=== PATIENT | male | born 1980 | race Caucasian/White ===

== ENCOUNTER 2019-11-03 22:18 | Emergency (ER) | payer OTHER ==
[~2019-11-03] VITALS: Ht 177.8 cm; Wt 81.7 kg
--- NOTE | ~2019-11-03 | O ---
[facility] [place] [address] OPERATIVE REPORT Name: EASTON GALVEZ [id number] Admission: 11/03/19 Attend Phys: Discharge: 11/04/19 Date of : 78 Report #: [id number] THIS REPORT FOR: //name// CC: BRIELLE physician/PCP Joanna Chowdary This was done from roughly midnight to 1 a.m. between 11/03/2019 and 11/04/2019. ICD-9 DIAGNOSES: 1. Massive dog bite to the face 4 x 3 cm deficit to the cheek. 2. Massive defect of the superior mandibular border 2.5 x 2.2 cm. 3. Complex lacerations of the cheek and the eyelid. PROCEDURE PERFORMED: 1. Irrigation and debridement of the cheek and mandibular border. 2. Closure of 4 x 3 cm deficit with reconstruction flap based upon the superficial temporal vessels. 3. Closure of the lower jaw utilizing a marginal and facial artery flap. 4. Complex closure of the left cheek. 5. Complex closure of the left eyelid. INDICATIONS: This is a gentleman who late on Tuesday night, 11/03/2019, had left side of his face bitten off by a stray dog. There is very little information by the family, tremendous amount of anxiety in the room with multiple family members in and out of the room. Our plan tonight is to sedate him, have the family member step out into the waiting room while I can undertake thorough cleansing and debridement and start approximating these wounds. This is a staged procedure and that he is going to require multiple surgeries for reconstruction. DESCRIPTION OF PROCEDURE: The patient was supine on the operating table. The nursing staff and that the physician in-charge from the Emergency Room assisted in giving IV Versed while I performed injections. Total injections were roughly 40-45 mL of lidocaine and Marcaine with epinephrine. I did nerve blocks at the infraorbital nerve and supraorbital nerve, the inferior alveolar nerve and marginal mandibular as well as along the superficial temporal fascia. This is to help anesthetize the face. He also displayed a lot of agitation and he required sedation throughout the procedure. Following this, I irrigated, I used both chlorhexidine and then followed by Betadine and then to get the chlorhexidine out, but I wanted to get as much as sterile and antiseptic into the massive open wound, so I irrigated with copious amounts of saline following this and now I began the closures of the two largest ones were the 4 x 3 cm on the mid cheek and then one just above the mandibular border within his siegel. I then debrided 4 x 3 cm incision. I freshened up the wound edges, shaped more like a rhomboid and performed a large cut back incision utilizing the superficial temporal vessel to be able to rotate and advance the soft tissue into position and advanced the closure. I used facelift techniques and just did [address] [address] OPERATIVE REPORT Name: LENNYEASTON Room #: DEP ER Patrick#: [id number] Admission: 11/03/19 Attend Phys: Discharge: 11/04/19 Date of : 78 Report #: [id number] this reconstruction right above this mass. I was able to attach some of the reconstruction as it was rotated into position 60 degrees as a Limberg flap. I rotated it and captured these mass for the closure. This was done with 4-0 Monocryl sutures. Multiple layers of 4-0 Monocryl sutures were utilized, followed by 5-0 Prolenes for closure of the skin, complex closures with 4 additional 4-0 Monocryl and 5-0 Prolenes were performed in the complex lacerations of the cheek and then also carried up into the left lateral eyelid. I now had the mandibular border lesion, which was in his siegel. I then proceeded with advancing this defect, was closed by advancing facial artery based flap and it was rotated with a cut back incision and inset with 4-0 Monocryl, followed by 5-0 Prolene in inverting fashion. Adaptic and Bactroban were applied to the site. The reconstruction flaps were stable upon completion of the procedure with well vascularized lesions. This covered the 2.5 x 2 cm deficit. The patient tolerated the procedure well. Sponge and needle count were correct. No drains or packs were placed. Light activity, head elevation, hydrocodone for pain. I have recommended Augmentin to be given to the family and the Emergency Room doctor will prescribe all the medications. Blood loss was roughly 30 mL. During these procedures, the epinephrine helped considerably. Once I got this in, the epinephrine into the wound really helped out in terms of hemostasis. He was stable upon discharge. He had further workup being done by the Emergency Room staff. I will be seeing him on an outpatient basis. By: [id number] Gregg Hogan MD /renita
--- NOTE | ~2019-11-03 | HC ---
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 Apparently, his face was placed in the way of he states a stray dog and the dog has taken a large chunk of tissue out of his face, his cheek. He has greater than 4 x 3 cm deficit of tissue out of his cheek through the skin and subcutaneous tissues down to the SMAS muscle. He also has a 2 cm x 2.5 cm deficit out of the mandibular border, which is covered by his siegel. He has multiple scrapes, abrasions and significant damage in my evaluation as well. These wounds have been stabilized by the Emergency Room, as thus far too significant for the Emergency Room to repair. He is also very agitated and lots of the family members have had alcohol. Now, there is a lot of anxiety in the room. My recommendation, I have a very competent ER physician and nurse and they feel comfortable with sedation anesthesia, so therefore, I would recommend Versed to the site and we will irrigate and debride these wounds. He has multiple other scrapes and cuts all around the cheek in the lower eyelid. We will proceed with closure of the eyelid and complex closure technique followed by cheek closure. The biggest problem, I will require a large cut back incision and closure of the three greater than 3 x 4 cm deficit of the cheek. The mandibular border I will be able to close with relaxing incisions and get this wound closed as well. The risks of bleeding, infection, need for additional surgery have all been discussed. He will require copious amounts of antibiotic irrigation today and then of course follow up on the close of antibiotics as the risk is having infection in this wound. Risks of bleeding, infection, need for additional surgery, poor wound healing, poor results, need for further intervention, sensation changes were all discussed with the family and we will proceed with the initial repair, very high likelihood that he will need revisionary surgery and tonight our goal is to get this cleansed and closed as best as possible and the family has agreed to this. By: [id number] Gregg Hogan MD /renita
[~2019-11-03 22:18] MED LIST: CELEXA40 MG; PERCOCET
[2019-11-03] MEDS ORDERED: FLOMAX0.4 MG PO (22:27)
[2019-11-04] MEDS ORDERED: NORCO 5-325 TA1 EAC1 PO (00:31)
[2019-11-04] MEDS ORDERED: AUGMENTIN 875-1 EACH PO (00:31)
[2019-11-04] MEDS ORDERED: MUPIROCIN1 GM TOP (00:31)
[2019-11-04 07:04] VITALS: BP 120/77
== END 2019-11-04 07:08 | disposition home or self-care (01) ==
LOC: ER 22:18
DX: S01.452A Open bite of left cheek and temporomandibular area, initial encounter (principal); F17.210 Nicotine dependence, cigarettes, uncomplicated; W54.0XXA Bitten by dog, initial encounter; Y93.89 Activity, other specified; Y92.89 Other specified places as the place of occurrence of the external cause; Y99.8 Other external cause status

== ENCOUNTER 2019-11-21 14:19 | Emergency (ER) | payer OTHER ==
[~2019-11-21] VITALS: Ht 177.8 cm; Wt 79.4 kg
[~2019-11-21 14:19] MED LIST changes: +AUGMENTIN 875-1 EACH PO; +FLOMAX0.4 MG PO; +MUPIROCIN1 GM TOP; +NORCO 5-325 TA1 EAC1 PO
[2019-11-21 15:15] LABS: HEMATOCRIT 45.4 % (42.0-52.0); HEMOGLOBIN 14.5 gm/dL (14.0-18.0); MCH 26.8 pg (26.0-34.0); MCHC 31.9 g/dL (28.0-37.0); MCV 84.1 fL (80.0-100.0); RBC 5.4 mil/uL (4.50-6.00); RDW 14.5 % (10.5-14.5); WBC 14.5 thou/uL (4.0-11.0)
[2019-11-21 15:26] LABS: CALCIUM 9.2 mg/dL (8.5-10.1); CREATININE 1.1 mg/dL (0.7-1.3); POTASSIUM 3.8 mmol/L (3.5-5.1)
[2019-11-21 19:12] VITALS: BP 100/58
== END 2019-11-21 20:57 | disposition short-term general hospital (02) ==
LOC: ER 14:19
PROVIDERS: Physician Assistant
DX: S02.31XA Fracture of orbital floor, right side, initial encounter for closed fracture (principal); S02.69XA Fracture of mandible of other specified site, initial encounter for closed fracture; S01.111A Laceration without foreign body of right eyelid and periocular area, initial encounter; S05.02XA Injury of conjunctiva and corneal abrasion without foreign body, left eye, initial encounter; R07.81 Pleurodynia; F17.210 Nicotine dependence, cigarettes, uncomplicated; Y04.0XXA Assault by unarmed brawl or fight, initial encounter; Y93.89 Activity, other specified; Y92.89 Other specified places as the place of occurrence of the external cause; Y99.8 Other external cause status

== ENCOUNTER 2021-06-12 14:10 | Inpatient (IN) | payer OTHER ==
[~2021-06-12] VITALS: Ht 177.8 cm; Wt 83.9 kg
[2021-06-12 06:40] VITALS: BP 115/78
[2021-06-12 14:22] VITALS: BP 126/75
[2021-06-12 16:04] LABS: ABSOLUTE NEUTROPHILS 9.7 thou/uL (1.4-8.2); BASOPHILS 0.7 % (0.0-2.0); EOSINOPHILS 0.5 % (0.0-3.0); HEMATOCRIT 42.9 % (42.0-52.0); HEMOGLOBIN 14.4 gm/dL (14.0-18.0); LYMPHOCYTES 14.7 % (24.0-44.0); MCH 28.2 pg (26.0-34.0); MCHC 33.7 g/dL (28.0-37.0); MCV 83.7 fL (80.0-100.0); PLATELET COUNT 352 thou/uL (150-400); POLYS 71.1 % (36.0-66.0); RBC 5.12 mil/uL (4.50-6.00); RDW 13.3 % (10.5-14.5); WBC 13.6 thou/uL (4.0-11.0)
[2021-06-12 16:15] LABS: CALCIUM 9.2 mg/dL (8.5-10.1); CREATININE 1.2 mg/dL (0.7-1.3); POTASSIUM 3.4 mmol/L (3.5-5.1)
[2021-06-12 16:21] LABS: ALBUMIN 3.6 g/dL (3.4-5.0); TOTAL BILIRUBIN 0.5 mg/dL (0.2-1.0); TOTAL PROTEIN 8.2 g/dL (6.4-8.2)
[2021-06-12 18:16] VITALS: BP 126/75
[2021-06-12 18:18] VITALS: BP 118/77
--- NOTE | 2021-06-13 02:44 | NUR ---
PT ADMITTED TO THE UNIT WITH C/O LT KNEE SWELLING ,PAIN AND REDNESS.PT IS A/O X4.PT IS UP WITH X1 ASSIST WITH CANE TO BATHROOM.PT EDUCATED TO CALL FOR HELP BEFORE GETTING UP AND FALL PRECAUTIONS IN PLACE.PT NPO FROM MIDNIGHT.PT PAIN MANAGED WITH NORCO WITH PARTIAL RELIEF.PT REFUSED ONETIME FENTANYL OREDERED FOR PAIN.IV ACCESS ON LT FA .WILL CONTINUE TO MONITOR PER POC
[2021-06-13 06:14] LABS: ABSOLUTE NEUTROPHILS 6.1 thou/uL (1.4-8.2); BASOPHILS 0.6 % (0.0-2.0); EOSINOPHILS 2.5 % (0.0-3.0); HEMATOCRIT 39.9 % (42.0-52.0); HEMOGLOBIN 13.1 gm/dL (14.0-18.0); LYMPHOCYTES 21.5 % (24.0-44.0); MCH 27.8 pg (26.0-34.0); MCHC 32.8 g/dL (28.0-37.0); MCV 84.6 fL (80.0-100.0); MONOCYTES 14.8 % (1.0-8.0); PLATELET COUNT 327 thou/uL (150-400); POLYS 60.6 % (36.0-66.0); RBC 4.71 mil/uL (4.50-6.00); RDW 13.5 % (10.5-14.5)
[2021-06-13 06:19] LABS: CALCIUM 8.2 mg/dL (8.5-10.1); CREATININE 1.2 mg/dL (0.7-1.3); MAGNESIUM 2.2 mg/dL (1.8-2.4); POTASSIUM 3.9 mmol/L (3.5-5.1)
[2021-06-13 08:21] VITALS: BP 121/78
--- NOTE | 2021-06-13 11:47 | NUR ---
Assumed pt care this am vs stable. Left knee has a incision that was from an I and D on the 2nd. Left knee is has some erythema, wound is open with minimal drainage, no purulence is noted. Deit and medicfations are tolerated well. Pain is maanged with medications, mother at the bed side.
[2021-06-13 15:50] VITALS: BP 122/73
[2021-06-13 19:41] VITALS: BP 107/64
[2021-06-14 05:59] VITALS: BP 117/72
--- NOTE | 2021-06-14 07:44 | NUR ---
Pt. rested quietly during the night when checked on during frequent rounds. He did c/o left knee pain and po pain med given (see emar) with some relief noted. Ativan also given for anxiety (see emar) with relief. Dressing to left knee is dry and intact. Up to the bathroom with standby assistance. Bed alarm is on.
[2021-06-14 08:07] VITALS: BP 115/77
--- NOTE | 2021-06-14 12:25 | NUR ---
Assumed pt care this am, vs stable. Wound care adn dressing change done by Dr. Granados in the am. Diet and medications are tolerated well. Pain is managed with medications, would be asleep for most of the shift. Mother at the bedside. Uses the urinal. Requested for nicotine patch to be removed since he wanted to see how he would do. POC followed.
[2021-06-14 16:42] VITALS: BP 117/74
[2021-06-14 19:13] VITALS: BP 120/77
[2021-06-15 02:58] LABS: ABSOLUTE NEUTROPHILS 4.7 thou/uL (1.4-8.2); BASOPHILS 1.3 % (0.0-2.0); EOSINOPHILS 5.2 % (0.0-3.0); HEMATOCRIT 40.5 % (42.0-52.0); HEMOGLOBIN 13.3 gm/dL (14.0-18.0); LYMPHOCYTES 31.9 % (24.0-44.0); MCH 27.9 pg (26.0-34.0); MCHC 32.9 g/dL (28.0-37.0); MCV 84.9 fL (80.0-100.0); PLATELET COUNT 299 thou/uL (150-400); POLYS 49.6 % (36.0-66.0); RBC 4.77 mil/uL (4.50-6.00); RDW 13.7 % (10.5-14.5); WBC 9.4 thou/uL (4.0-11.0)
--- NOTE | 2021-06-15 02:59 | NUR ---
Assumed pt care at 1900. A/OX4,VSS.C/o mild pain to knee after showering but declined need for pain meds then. Medicated with Ativan at HS per request. Wound care done to left knee at beginning of shift after shower;area pink with serous drainage noted,less tender/red per pt. Up with SBA.IVF infusing via LFA w/o problems. Resting quietly w/o distress noted,will continue to monitor pt.
[2021-06-15 03:22] LABS: ALBUMIN 2.5 g/dL (3.4-5.0); CALCIUM 8.4 mg/dL (8.5-10.1); PHOSPHORUS 3.6 mg/dL (2.5-4.9); POTASSIUM 3.8 mmol/L (3.5-5.1); TOTAL BILIRUBIN 0.2 mg/dL (0.2-1.0); TOTAL PROTEIN 6.7 g/dL (6.4-8.2)
[2021-06-15 07:34] VITALS: BP 113/78
--- NOTE | 2021-06-15 13:25 | NUR ---
Assumd pt care this am, vs stable pains is managed with medications partial relief is noted. Wound care and dressing change done, free from infection. Asleep for most of the shift, diet and medications are tolerated well. POC followed, uses the urnial and is able to ambulate with his cane.
[2021-06-15 17:36] VITALS: BP 128/72
[2021-06-15 19:49] VITALS: BP 120/81
--- NOTE | 2021-06-16 04:31 | NUR ---
Assumed pt care at 1900.A/OX4,VSS. Up with SBA/cane,pain to left knee with movement.Dsg on knee C/D/I. Medicated for pain/anxiety per request with relief reported. IVF infusing w/o problems noted. Premedicated for nausea d/t Po antibiotics with relief reported. Voiding per urinal at night. Will continue to monitor pt.
[2021-06-16 07:25] VITALS: BP 121/82
--- NOTE | 2021-06-16 09:02 | HC ---
[facility] [place] [address] CONSULTATION Name: EASTON GALVEZ Room #: 459-P ADM IN M.R.#: [id number] Admission: 06/12/21 Attend Phys: Kurt Wylie MD Discharge: Date of : 78 Report #: [id number] THIS REPORT FOR: cc: FAM - No family physician/PCP FAM - No family physician/PCP Isaac Granados MD ~ DATE OF SERVICE: 06/14/2021 WOUND CARE CONSULTATION NOTE REASON FOR CONSULTATION: Prepatellar bursitis with cellulitis, left knee, requiring surgical incision and drainage by Orthopedics. HISTORY OF PRESENT ILLNESS: The patient is a 41-year-old gentleman who had presented to medical care on 06/08/2021 with left knee pain. He was started on broad spectrum antibiotics, but then left the hospital. He returned and underwent incision and drainage of left knee infection in the prepatellar area by Dr. Patel on 06/11/2021. The patient now has a draining surgical incision and is on IV antibiotics, vancomycin for MRSA infection. Wound Care was consulted. PAST MEDICAL HISTORY: The patient is nondiabetic. 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 ALLERGIES: No known allergies. LABORATORY DATA: White blood count 13.6. PHYSICAL EXAMINATION: GENERAL: Shows a well-appearing, thin, middle-aged male. VITAL SIGNS: Temperature 36.7, blood pressure 117/72, heart rate 78. HEENT: Mucous membranes moist. NECK: Supple. LUNGS: Respirations unlabored. ABDOMEN: Soft. EXTREMITIES: Examination of the left lower extremity shows some swelling and redness of the left knee anteriorly in the patellar region. The patient had extensive redness, which has now diminished. He has a cruciate incision and drainage site anteriorly on the knee in the prepatellar area with an incision measuring 0.8 x 0.8 x 0.5 cm deep. This is probed with a cotton-tipped applicator and does not have any significant depth or tunneling. There is mild drainage. The patient states the redness has diminished. IMPRESSION AND PLAN: Cellulitis of the left knee with prepatellar bursitis, infection requiring surgical incision and drainage. Cellulitis has improved. [address] [address] CONSULTATION Name: EASTON GALVEZ Room #: 459-P ADM IN ..#: [id number] Admission: 06/12/21 Attend Phys: Kurt Wylie MD Discharge: Date of : 78 Report #: [id number] Culture grew methicillin-resistant Staphylococcus aureus. Continue IV antibiotics, vancomycin for methicillin-resistant Staphylococcus aureus. Topical Bactroban 2%, Xeroform foam border in a Kerlix dressing with elevation of the leg daily. Wound Care team will follow. <ELECTRONICALLY SIGNED> By: Isaac Granados MD 06/16/21 [id number] Isaac Granados MD /renita
--- NOTE | 2021-06-16 11:43 | NUR ---
WOUND CONSULT; THE LEFT KNEE WAS ASSESSED. SURGICAL WOUND. PATIENT D/C TODAY. THE WOUND IS TENDER TO PATIENT BUT WNL RE; SURGERY. NO S/S OF INFECTION. THE WOUND BED IS CLEAN. RECCOMMENDATIONS; -F/U WITH WOUND CARE IN [facility] -APPLY/PACK WITH XEROFORM GAUZE, ABD,SECURE WITH KERLIX, DAILY/PRN
--- NOTE | 2021-06-16 11:47 | NUR ---
Sleeping but awakens easily. Alert and orientated X4. Answering questions appropriately. States he has pain 7/10 per L knee, sleeping after oxycodone. Breath sounds clear. Reg HR auscultated. Color pink with brisk capillary refill and palpable peripheral pulses. 600 cc yellow urine per urinal. Active bowel sounds over soft, rounded abdomen. States he had BM yesterday and feels like he will have another one momentarily. Miralax held per pt request. Active bowel sounds over soft, rounded abdomen. NS infusing per L forearm at 50 cc/hr, site soft and flat, withdraws and flushes without difficulty.
[2021-06-16] MEDS ORDERED: LINEZOLID600 MG PO (13:31)
[2021-06-16] MEDS ORDERED: MUPIROCIN22 GM TOP (13:31)
[2021-06-16] MEDS ORDERED: ACETAMINOPHEN325 M1 PO (13:31)
[2021-06-16] MEDS ORDERED: MIRALAX17 GM PO (13:31)
[2021-06-16] MEDS ORDERED: LIDOPATCH1 EACH TRANSDERM (13:31)
[2021-06-16 13:36] VITALS: BP 121/82
--- NOTE | 2021-06-16 14:06 | NUR ---
PT ADMITTED RELATED TO SEPS[facility]. PT HAD I&D ON KNEE. CM REVIEWED CHART AND SPOKE WITH CARE TEAM. CM MET WITH PT AT BEDSIDE THIS AM. PT APPEARED TO BE A&O X4. CM ROLE INTRODUCED. PT INDICATED HE LIVES IN A HOUSE WITH HIS EX AND KIDS. 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 PT INDICATED HE IS PATIENT PAY AND HAS NO PCP OR INSURANCE. CM OFFERED [facility] INFO. PT INDICATED HE ANTICIPATES HE WILL BE ABLE TO PAY FOR MEDICATIONS UPON DC. PT'S MOTHER WAS SHOWN HOW TO DO DRESSING CHANGES AND WAS PROVIDED SUPPLIES. PT INDICATED HE IS GOING TO STAY WITH MOTHER IN APARTMENT IN [facility] WITH ELEVATOR ACCESS UPON DC. NO OTHER CM INTERVETNION INDICATED. CASE CLOSED.
== END 2021-06-16 14:50 | disposition home or self-care (01) | DRG 558 ==
LOC: ER 14:10 → EROBS 18:24 → 4W 18:27
PROVIDERS: Internal Medicine; Nurse Practitioner; Physician Assistant; ADMIT Hospitalist; ATTEND Hospitalist
DX: M71.162 Other infective bursitis, left knee (principal); L03.116 Cellulitis of left lower limb; L02.416 Cutaneous abscess of left lower limb; F43.10 Post-traumatic stress disorder, unspecified; E87.6 Hypokalemia; F19.10 Other psychoactive substance abuse, uncomplicated; F17.210 Nicotine dependence, cigarettes, uncomplicated; B95.62 Methicillin resistant Staphylococcus aureus infection as the cause of diseases classified elsewhere; Z20.822 Contact with and (suspected) exposure to COVID-19; Z72.89 Other problems related to lifestyle; Z79.899 Other long term (current) drug therapy
CPT/HCPCS: 10040

== ENCOUNTER 2021-06-17 21:47 | Emergency (ER) | payer OTHER ==
[~2021-06-17] VITALS: Ht 177.8 cm; Wt 83.9 kg
[~2021-06-17 21:47] MED LIST changes: +ACETAMINOPHEN325 M1 PO; +LIDOPATCH1 EACH TRANSDERM; +LINEZOLID600 MG PO; +MIRALAX17 GM PO; +MUPIROCIN22 GM TOP
[2021-06-18 02:05] LABS: ABSOLUTE NEUTROPHILS 6.5 thou/uL (1.4-8.2); BASOPHILS 0.9 % (0.0-2.0); EOSINOPHILS 3.8 % (0.0-3.0); HEMATOCRIT 42.1 % (42.0-52.0); HEMOGLOBIN 14.1 gm/dL (14.0-18.0); LYMPHOCYTES 27.8 % (24.0-44.0); MCH 28.3 pg (26.0-34.0); MCHC 33.5 g/dL (28.0-37.0); MCV 84.2 fL (80.0-100.0); MONOCYTES 8.4 % (1.0-8.0); POLYS 59.1 % (36.0-66.0); RDW 13.4 % (10.5-14.5); WBC 10.9 thou/uL (4.0-11.0)
[2021-06-18 02:09] LABS: CALCIUM 8.9 mg/dL (8.5-10.1); CREATININE 1.1 mg/dL (0.7-1.3); POTASSIUM 3.7 mmol/L (3.5-5.1)
[2021-06-18 02:10] LABS: PLATELET COUNT 422 thou/uL (150-400)
[2021-06-18] MEDS ORDERED: DOXYCYCLINE 10100 MG PO (02:51)
[2021-06-18] MEDS ORDERED: NAPROXEN SODIU220 M2 PO (02:51)
[2021-06-18] MEDS ORDERED: ATIVAN0.5 M1 PO (02:54)
[2021-06-18 03:08] VITALS: BP 119/71
== END 2021-06-18 03:10 | disposition home or self-care (01) ==
LOC: ER 21:47
PROVIDERS: Emergency Medicine
DX: M71.562 Other bursitis, not elsewhere classified, left knee (principal); F17.210 Nicotine dependence, cigarettes, uncomplicated; Z79.891 Long term (current) use of opiate analgesic; Z79.899 Other long term (current) drug therapy